=== PATIENT | male | born 1990 | race Asian ===

== ENCOUNTER 2018-10-17 19:30 | Emergency (ER) | payer OTHER ==
[~2018-10-17] VITALS: Ht 182.9 cm; Wt 67.1 kg
[2018-10-17 20:26] VITALS: Ht 182.9 cm; Wt 67.1 kg
[2018-10-17 21:50] VITALS: BP 115/68
== END 2018-10-17 21:50 | disposition home or self-care (01) ==
LOC: ED 19:30
DX: S61.011A Laceration without foreign body of right thumb without damage to nail, initial encounter (principal); F17.210 Nicotine dependence, cigarettes, uncomplicated; X58.XXXA Exposure to other specified factors, initial encounter; Y93.89 Activity, other specified; Y92.89 Other specified places as the place of occurrence of the external cause; Y99.8 Other external cause status
CPT/HCPCS: 90715; 99406; J3490; Q0092